=== PATIENT | male | born 1985 | race Caucasian/White ===

== ENCOUNTER 2018-11-30 00:01 | Emergency (ER) | payer SELFPAY ==
[~2018-11-30] VITALS: Ht 188 cm; Wt 79.0 kg
[2018-11-30] MEDS ORDERED: ANTIBIOTIC PO (00:08)
[2018-11-30] MEDS: KETOROLAC TROMETHAMINE 60 MG/2 ML VIAL IM ONE (00:30)
[2018-11-30 01:55] VITALS: BP 121/76
[2018-11-30] MEDS: LIDOCAINE/PF 1% 2 ML VIAL IM ONE (02:01)
[2018-11-30] MEDS: CefTRIAXone SODIUM 1 GM/VIAL IM ONE (02:01)
[2018-11-30] MEDS ORDERED: DOXY100C PO (21:23)
[2018-11-30] MEDS ORDERED: CEPH500 PO (21:23)
== END 2018-11-30 02:06 | disposition home or self-care (01) ==
LOC: EMS 00:05
DX: H60.11 Cellulitis of right external ear (principal); F12.90 Cannabis use, unspecified, uncomplicated
CPT/HCPCS: 96372; 99283; J0696; J3490

== ENCOUNTER 2018-11-30 21:00 | Inpatient (IN) | payer SELFPAY ==
[~2018-11-30] VITALS: Ht 188 cm; Wt 79.8 kg
[~2018-11-30 21:00] MED LIST: ANTIBIOTIC PO
[2018-11-30] MEDS ORDERED: ACETAMINOPHEN 500 MG TABLET ONE (21:14)
[2018-11-30] MEDS ORDERED: CEPH500 PO (21:23)
[2018-11-30] MEDS ORDERED: DOXY100C PO (21:23)
[2018-11-30] MEDS ORDERED: ACETAMINOPHEN 500 MG TABLET PO ONE (21:30)
[2018-11-30 21:34] LABS: BASOPHILS % (AUTO) 0.3 % (0.0-2.0); EOSINOPHILS % (AUTO) 0.3 % (1.0-6.0); HEMOGLOBIN 16.2 g/dL (13.5-17.5); LYMPHOCYTES # (AUTO) 1.5 K/uL (1.0-4.8); LYMPHOCYTES % (AUTO) 14.6 % (22.0-44.0); MEAN CORPUSCULAR HEMOGLOBIN 29.9 pg (26.0-34.0); MEAN CORPUSCULAR HGB CONC 33.1 G/dL (31.0-37.0); MEAN CORPUSCULAR VOLUME 90 fL (80-100); MONOCYTES # (AUTO) 0.8 K/uL (0.1-1.0); MONOCYTES % (AUTO) 7.9 % (2.0-9.0); NEUTROPHILS # (AUTO) 7.9 K/uL (1.8-7.7); NEUTROPHILS % (AUTO) 76.9 % (40.0-70.0); PLATELET COUNT (AUTO) 172 K/uL (150-450); RED BLOOD CELL COUNT(AUTO) 5.42 MIL/uL (4.50-5.90); RED CELL DISTRIBUTION WIDTH 13.7 % (11.5-14.5)
[2018-11-30 22:01] LABS: ANION GAP 9 mmol/L (8-16); CALCIUM, TOTAL 9.9 mg/dL (8.8-10.5); CARBON DIOXIDE 26 mmol/L (22-29); CHLORIDE 101 mmol/L (98-107); GLOMERULAR FILTR. RATE CALC > 60 mL/min (>60); GLUCOSE,RANDOM 111 mg/dL (70-110); POTASSIUM 3.7 mmol/L (3.5-5.1); SODIUM SERUM 136 mmol/L (136-145); UREA NITROGEN, BLOOD 12 mg/dL (7-18)
[2018-11-30 22:08] LABS: ALANINE AMINOTRANSFERASE 35 U/L (12-78); ALBUMIN 3.9 g/dL (3.4-5.0); ALKALINE PHOSPHATASE 57 U/L (46-116); ASPARTATE AMINOTRANSFERASE 27 U/L (15-37); BILIRUBIN,TOTAL 1.7 mg/dL (0.1-1.0); TOTAL PROTEIN, SERUM 7.6 g/dL (6.4-8.2)
[2018-11-30] MEDS ORDERED: VANCOMYCIN HCL 1 GM/D5% WATER 200 ML IV ONE (22:30)
[2018-11-30] MEDS ORDERED: KETOROLAC TROMETHAMINE 30 MG/ML VIAL IVP ONE (22:30)
[2018-11-30] MEDS ORDERED: LORazepam 2 MG/ML VIAL IVP ONE (22:30)
[2018-11-30] MEDS ORDERED: PIPERACILLIN/TAZO 3.375 GM/D5W 50 ML IV ONE (23:00)
[2018-11-30] MEDS ORDERED: 0.9% SODIUM CHLORIDE 10 ML SYRINGE IVP PRN (23:00)
[2018-11-30] MEDS ORDERED: ONDANSETRON HCL 4 MG/2 ML VIAL IVP PRN (23:00)
[2018-11-30] MEDS ORDERED: ACETAMINOPHEN 325 MG TABLET PO PRN (23:00)
[2018-11-30] MEDS ORDERED: HYDROCODONE/ACETAMINOPHEN 5-325 MG TABLET PO PRN (23:00)
[2018-11-30] MEDS ORDERED: PERTUSS(ACELL),DIPH,TET VAC/PF 0.5 ML VIAL IM ONE (23:15)
[2018-12-01] VITALS (7 sets, daily range): BP systolic 105–130; BP diastolic 53–71
[2018-12-01] MEDS ORDERED: SODIUM CHLORIDE 0.9% 500 ML IV ONE (01:33)
[2018-12-01] MEDS ORDERED: SODIUM CHLORIDE 0.9% 100 ML ONE (09:46)
[2018-12-01] MEDS ORDERED: IOVERSOL 320 MG/ML 100 ML VIAL ONE (09:46)
[2018-12-01] MEDS: PIPERACILLIN/TAZO 3.375 GM/D5W 50 ML IV SCH ×3 (10:28→21:56)
[2018-12-01] MEDS ORDERED: VANCOMYCIN HCL 1 GM/D5% WATER 200 ML IV ONE (11:00)
[2018-12-01] MEDS: VANCOMYCIN HCL 1.25 GM in DEXTROSE 5%-WATER 250 ML IV SCH (20:14)
[2018-12-01] MEDS ORDERED: HYDROCODONE/ACETAMINOPHEN 5-325 MG TABLET PO PRN (20:45)
[2018-12-01] MEDS ORDERED: ACETAMINOPHEN 325 MG TABLET PO PRN (20:45)
[2018-12-01] MEDS ORDERED: ONDANSETRON HCL 4 MG/2 ML VIAL IVP PRN (20:45)
[2018-12-02] MEDS: PIPERACILLIN/TAZO 3.375 GM/D5W 50 ML IV SCH ×4 (04:16→22:50)
[2018-12-02 04:38] VITALS: BP 111/58
[2018-12-02 06:34] LABS: BASOPHILS % (AUTO) 0.5 % (0.0-2.0); EOSINOPHILS % (AUTO) 3.1 % (1.0-6.0); HEMATOCRIT 44.6 % (41-53); LYMPHOCYTES # (AUTO) 2.7 K/uL (1.0-4.8); LYMPHOCYTES % (AUTO) 31.5 % (22.0-44.0); MEAN CORPUSCULAR HEMOGLOBIN 30.2 pg (26.0-34.0); MEAN CORPUSCULAR HGB CONC 33.7 G/dL (31.0-37.0); MEAN CORPUSCULAR VOLUME 90 fL (80-100); MONOCYTES # (AUTO) 1.3 K/uL (0.1-1.0); MONOCYTES % (AUTO) 15.3 % (2.0-9.0); NEUTROPHILS # (AUTO) 4.3 K/uL (1.8-7.7); NEUTROPHILS % (AUTO) 49.6 % (40.0-70.0); PLATELET COUNT (AUTO) 177 K/uL (150-450); RED BLOOD CELL COUNT(AUTO) 4.97 MIL/uL (4.50-5.90); RED CELL DISTRIBUTION WIDTH 13.5 % (11.5-14.5)
[2018-12-02 06:41] LABS: ANION GAP 9 mmol/L (8-16); CALCIUM, TOTAL 9.7 mg/dL (8.8-10.5); CARBON DIOXIDE 29 mmol/L (22-29); CHLORIDE 101 mmol/L (98-107); CREATININE 1.25 mg/dL (0.60-1.30); GLOMERULAR FILTR. RATE CALC > 60 mL/min (>60); GLUCOSE,RANDOM 86 mg/dL (70-110); POTASSIUM 3.5 mmol/L (3.5-5.1); SODIUM SERUM 139 mmol/L (136-145); UREA NITROGEN, BLOOD 11 mg/dL (7-18)
[2018-12-02 07:30] VITALS: BP 115/65
[2018-12-02] MEDS: VANCOMYCIN HCL 1.25 GM in DEXTROSE 5%-WATER 250 ML IV SCH ×2 (08:10→20:28)
[2018-12-02 11:36] VITALS: BP 112/58
[2018-12-02 15:10] VITALS: BP 118/57
[2018-12-02 19:48] VITALS: BP 107/73
[2018-12-02 23:55] VITALS: BP 105/63
[2018-12-03] MEDS ORDERED: ZOLPIDEM TARTRATE 10 MG TABLET PO PRN (01:30)
[2018-12-03] MEDS: PIPERACILLIN/TAZO 3.375 GM/D5W 50 ML IV SCH ×2 (04:28→10:00)
[2018-12-03 05:40] LABS: BASOPHILS % (AUTO) 0.5 % (0.0-2.0); EOSINOPHILS % (AUTO) 4.5 % (1.0-6.0); HEMATOCRIT 45.4 % (41-53); HEMOGLOBIN 15.7 g/dL (13.5-17.5); LYMPHOCYTES # (AUTO) 2.9 K/uL (1.0-4.8); LYMPHOCYTES % (AUTO) 36.2 % (22.0-44.0); MEAN CORPUSCULAR HEMOGLOBIN 30.7 pg (26.0-34.0); MEAN CORPUSCULAR HGB CONC 34.5 G/dL (31.0-37.0); MEAN CORPUSCULAR VOLUME 89 fL (80-100); MONOCYTES # (AUTO) 0.9 K/uL (0.1-1.0); MONOCYTES % (AUTO) 11.1 % (2.0-9.0); NEUTROPHILS # (AUTO) 3.8 K/uL (1.8-7.7); NEUTROPHILS % (AUTO) 47.7 % (40.0-70.0); PLATELET COUNT (AUTO) 188 K/uL (150-450); RED BLOOD CELL COUNT(AUTO) 5.11 MIL/uL (4.50-5.90); RED CELL DISTRIBUTION WIDTH 13.5 % (11.5-14.5)
[2018-12-03 06:35] LABS: ANION GAP 9 mmol/L (8-16); CALCIUM, TOTAL 9.3 mg/dL (8.8-10.5); CARBON DIOXIDE 27 mmol/L (22-29); CHLORIDE 102 mmol/L (98-107); CREATININE 1.22 mg/dL (0.60-1.30); GLOMERULAR FILTR. RATE CALC > 60 mL/min (>60); GLUCOSE,RANDOM 87 mg/dL (70-110); POTASSIUM 3.5 mmol/L (3.5-5.1); SODIUM SERUM 138 mmol/L (136-145); UREA NITROGEN, BLOOD 14 mg/dL (7-18); VANCOMYCIN,RANDOM 14.6 mcg/mL (25.0-50.0)
[2018-12-03 08:17] VITALS: BP 94/63
[2018-12-03] MEDS: VANCOMYCIN HCL 1.25 GM in DEXTROSE 5%-WATER 250 ML IV SCH (08:52)
[2018-12-03] MEDS ORDERED: CIPR-278 PO (10:43)
[2018-12-03] MEDS ORDERED: NEOM1OIN8 TP (10:44)
[2018-12-03 12:01] VITALS: BP 119/68
[2018-12-03] MEDS ORDERED: VANCOMYCIN HCL 1 GM/D5% WATER 200 ML IV SCH (15:00)
== END 2018-12-03 12:45 | disposition home or self-care (01) | DRG 156 ==
LOC: EMS 21:00 → 6N 22:30
PROVIDERS: ADMIT Internal Medicine; ATTEND Internal Medicine
DX: H60.91 Unspecified otitis externa, right ear (principal); H60.11 Cellulitis of right external ear; F12.90 Cannabis use, unspecified, uncomplicated; Z79.899 Other long term (current) drug therapy
CPT/HCPCS: 70487; 83605; 87040; 90715; 96365; 96375; J1885; J2060; J2543; J3370; J7040; J7050; J7060

== ENCOUNTER 2019-03-12 13:43 | Emergency (ER) | payer SELFPAY ==
[~2019-03-12] VITALS: Ht 188 cm; Wt 79.5 kg
[~2019-03-12 13:43] MED LIST changes: -ANTIBIOTIC PO; +CIPR-278 PO; +NEOM1OIN8 TP
[2019-03-12 14:57] LABS: APPEARANCE,URINE CLOUDY (CLEAR); BILIRUBIN,URINE NEGATIVE (NEGATIVE); GLUCOSE, URINE (UA) NEGATIVE (NEGATIVE); KETONES,URINE NEGATIVE (NEGATIVE); LEUKOCYTE ESTERASE ,URINE NEGATIVE (NEGATIVE); NITRATE,URINE NEGATIVE (NEGATIVE); OCCULT BLOOD,URINE NEGATIVE (NEGATIVE); PH,URINE 7.5 (5.0-8.0); PROTEIN,URINE NEGATIVE (NEGATIVE)
[2019-03-12] MEDS ORDERED: CefTRIAXone SODIUM 1 GM/VIAL IM ONE (15:00)
[2019-03-12] MEDS ORDERED: AZITHROMYCIN 250 MG TABLET PO ONE (15:00)
[2019-03-12] MEDS ORDERED: LIDOCAINE/PF 1% 2 ML VIAL IM ONE (15:00)
[2019-03-12 15:28] LABS: AMORPHOUS SEDIMENT,UR Many /LPF (None Seen); BACTERIA,URINE Rare /HPF (None Seen); RBC,URINE 0-2 /HPF (0-2); SQUAMOUS EPITHELIAL CELL,UR Rare /LPF (None Seen); WBC,URINE 0-2 /HPF (0-5)
[2019-03-12 15:56] VITALS: BP 127/71
== END 2019-03-12 15:56 | disposition home or self-care (01) ==
LOC: EMS 13:44
DX: N34.2 Other urethritis (principal); R03.0 Elevated blood-pressure reading, without diagnosis of hypertension; F17.210 Nicotine dependence, cigarettes, uncomplicated; F12.90 Cannabis use, unspecified, uncomplicated
CPT/HCPCS: 81001; 87491; 87591; 96372; 99283; J0696; J3490